=== PATIENT | male | born 1995 | race Caucasian/White ===

== ENCOUNTER 2019-10-03 12:05 | Emergency (ER) | payer OTHER ==
[2019-10-03] MEDS ORDERED: NORMAL SALINE 1000 ML 1,000 ML IV ONE (12:19)
[2019-10-03 12:29] LABS: ABSOLUTE LYMPHOCYTES (AUTO) 0.9 10^3/uL (0.5-4.7); ABSOLUTE MONOCYTES (AUTO) 0.6 10^3/uL (0.1-1.4); ABSOLUTE NEUT (AUTO) 4.5 10^3/uL (1.7-8.2); BASOPHILS % (AUTO) 0.5 % (0-2); EOSINOPHILS % (AUTO) 0.4 % (0-6); HEMATOCRIT 46.5 % (37.9-51.0); HEMOGLOBIN 16.2 g/dL (13.5-17.0); MEAN CORPUSCULAR HEMOGLOBIN 29.5 pg (27.0-33.4); MEAN CORPUSCULAR HGB CONC 34.8 g/dL (32.0-36.0); MEAN CORPUSCULAR VOLUME 85 fl (80-97); MONOCYTES % (AUTO) 9.4 % (3-13); PLATELET COUNT 213 10^3/uL (150-450); RED BLOOD COUNT 5.49 10^6/uL (4.35-5.55); RED CELL DISTRIBUTION WIDTH 13.7 % (11.5-14.0); SEGMENTED NEUTROPHILS % (AUTO) 74.7 % (42-78); TOTAL CELLS COUNTED % (AUTO) 100 %
--- NOTE | 2019-10-03 12:30 | ER Document Report ---
ED General - General Chief Complaint: Suicidal Ideation Stated Complaint: SUICIDAL IDEATION Time Seen by Provider: 10/03/19 12:14 - HPI Notes: 24-year-old male transported here via EMS following attempted suicide. The patient apparently informed a friend that he was having thoughts about harming himself and they sent sheriff bush to his residence where he was found in a closed garage with in general automobile running apparently attempting suicide by inhalation of carbon monoxide. He was awake but lethargic when EMS arrived. Patient also told him that he had taken approximately 15 tablets of methylphenidate 27 mg. extended release no vomiting. Patient also ingested about 6 beers this morning. Patient is minimally cooperative and conversant here. Active duty . - Related Data Allergies/Adverse Reactions: No Known Allergies Allergy (Unverified 10/03/19 14:04) Past Medical History - General Information source: Patient, Emergency Med Personnel - Social History Smoking Status: Unknown if Ever Smoked Family History: Reviewed & Not Pertinent Psychiatric Medical History: Reports: Hx Depression Review of Systems - Review of Systems -: Yes ROS unobtainable due to patient's medical condition Physical Exam - Vital signs Vitals: Resp Pulse Ox 14 100 10/03/19 12:11 10/03/19 12:11 - Notes Notes: GENERAL: Male patient of approximately stated age who is sleepy but arousable and will answer simple yes/no questions. SKIN: Mildly flushed. Good turgor no rashes. HEAD: Normocephalic atraumatic. EYES: PERRLA. EOMI. Conjunctivae and sclerae clear. EARS: CANALS AND TMS CLEAR. NOSE: CLEAR. MOUTH: Moist mucosa. Good dentition. No stridor or edema. No drooling. NECK: Supple. No masses or thyromegaly. No adenopathy. Carotids 2+ without bruits. No JVD. BACK: Symmetrical without tenderness. CHEST: Respirations unlabored. Breath sounds clear and symmetrical. HEART: Tachycardic regular rhythm. No murmur gallop or rub. ABDOMEN: Soft nontender without masses, organomegaly or rebound. Bowel sounds normally active. No bruits. GENITALIA: Deferred. EXTREMITIES: No edema. No calf tenderness. Cap refill less than 1.5 seconds. Dorsalis pedis and posterior tibial pulses 3+ and symmetrical. NEUROLOGICAL: GCS 13. Sleepy but arousable. Speech mildly slurred cranial nerves II through XII intact. Sensorimotor and cerebellar normal. Normal tone. PSYCHIATRIC: Flat affect. Course - Re-evaluation Re-evalutation: 10/03/19 12:30 Case discussed with [place] poison control ( [place]). Because of the ingestion of extended release methylphenidate they recommend a minimum of [address] patient on a 100% nonrebreather O2 mask. Carboxyhemoglobin ABG CK chemistry CBC salicylate level and acetaminophen level as well as EKG requested. - Vital Signs Vital signs: Temp Pulse Resp BP Pulse Ox 98.4 F 17 130/101 H 100 10/03/19 19:44 10/03/19 19:02 10/03/19 19:02 10/03/19 19:02 - Laboratory Result Diagrams: 10/03/19 12:10 10/03/19 12:10 Laboratory results interpreted by me: 10/03/19 10/03/19 10/03/19 12:10 12:10 12:10 ABG pO2 344.8 H ABG O2 Saturation 99.8 H Carboxyhemoglobin 1.8 H Glucose 119 H Calcium 10.3 H Albumin 5.2 H Salicylates < 1.0 L Acetaminophen < 10 L Discharge - Discharge Clinical Impression: Suicide attempt, Carbon monoxide toxicity, Intentional overdose methylphenidate Major depression Qualifiers: Major depression recurrence: unspecified whether recurrent Active/Remission status: currently active Major depression episode severity: severe Psychotic features: without psychotic features Qualified Code(s): F32.2 - Major depressive disorder, single episode, severe without psychotic features Disposition: PSYCH HOSP/UNIT
[2019-10-03 12:40] LABS: ARTERIAL BLOOD BASE EXCESS -0.7 mmol/L; ARTERIAL BLOOD FIO2 15L; ARTERIAL BLOOD H2CO3 1.16 mmol/L (1.05-1.35); ARTERIAL BLOOD HCO3 23.8 mmol/L (20-24); ARTERIAL BLOOD O2 SATURATION 99.8 % (94-98); ARTERIAL BLOOD PCO2 38.7 mmHg (35-45); ARTERIAL BLOOD PH 7.41 (7.35-7.45); ARTERIAL BLOOD PO2 344.8 mmHg (80-100); ARTERIAL BLOOD TOTAL CO2 24.9 mmol/L (23-27)
[2019-10-03 12:46] LABS: ALBUMIN 5.2 g/dL (3.5-5.0); ALCOHOL 44 mg/dL (NONE DETECTED); ALKALINE PHOSPHATASE 58 U/L (38-126); ANION GAP 14 (5-19); ASPARTATE AMINO TRANSFERASE 23 U/L (17-59); BILIRUBIN,DIRECT 0.3 mg/dL (0.0-0.4); BILIRUBIN,TOTAL 0.4 mg/dL (0.2-1.3); BLOOD UREA NITROGEN 18 mg/dL (7-20); CALCIUM 10.3 mg/dL (8.4-10.2); CARBON DIOXIDE 25 mmol/L (22-30); CHLORIDE 104 mmol/L (98-107); GLUCOSE 119 mg/dL (75-110); POTASSIUM 4.5 mmol/L (3.6-5.0); TOTAL PROTEIN 8.2 g/dL (6.3-8.2)
[2019-10-03 12:47] LABS: ACETAMINOPHEN < 10 ug/mL (10-30); SALICYLATE < 1.0 mg/dL (2.0-20.0)
--- NOTE | 2019-10-03 13:49 | PSYCHOLOGICAL NOTE ---
Psych Note - Psych Note Date seen by psych provider: 10/03/19 Time seen by psych provider: :20 Psych Note: Reason for Consult: Suicide attempt Patient is currently not medically cleared. Patient confirms to clinician he attempted suicide by overdosing on his medication and locking himself in his garage with his car on. He reports he was upset about work, but does not go into details. He states his attempt was more impulsive with little planning and immediate action. He disclosed he was at work when he became upset, left and acted on his plan. 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 Patient is recommended for IVC. Once medically cleared, the behavioral health team will coordinate with [facility]'s transfer center for plan of care due to the patient being active duty.
--- NOTE | 2019-10-03 14:27 | EKG REPORT ---
SEVERITY:- ABNORMAL ECG - SINUS TACHYCARDIA PROBABLE LEFT ATRIAL ABNORMALITY CONSIDER RIGHT VENTRICULAR HYPERTROPHY NONSPECIFIC T ABNORMALITIES, INFERIOR LEADS : Confirmed by: Harpreet Bell 03-Oct-2019 14:24:58
[2019-10-03 16:32] LABS: APPEARANCE,URINE CLEAR; BILIRUBIN,URINE NEGATIVE (NEGATIVE); COLOR,URINE COLORLESS; GLUCOSE, URINE NEGATIVE (NEGATIVE); KETONES,URINE NEGATIVE (NEGATIVE); PROTEIN,URINE NEGATIVE (NEGATIVE); URINE SPECIFIC GRAVITY 1.003; UROBILINOGEN,URINE NEGATIVE mg/dL (<2.0)
[2019-10-03 17:00] LABS: URINE AMPHETAMINES SCREEN NEGATIVE; URINE BARBITURATES SCREEN NEGATIVE; URINE BENZODIAZEPINES SCREEN NEGATIVE; URINE COCAINE SCREEN NEGATIVE; URINE MARIJUANA (THC) SCREEN NEGATIVE; URINE METHADONE SCREEN NEGATIVE; URINE PHENCYCLIDINE SCREEN NEGATIVE
[2019-10-03] MEDS: NORMAL SALINE 1000 ML 1,000 ML IV PRN ×2 (20:35→21:10)
--- NOTE | 2019-10-03 23:22 | ER Document Report ---
Doctor's Note Notes: 10/03/19 23:17 Pt turned over to be by Dr. Cervantes awaiting heart rate to be not tachycardic and ? transfer to [facility]. He reportedly drank a six pack and turned his vehicle on and tried to kill himself with CO. Also took extra methylphenidate. Poison center reccomendations were followed and he was observed in the ED. I have discussed with Dr. Arevalo (Psychiatry at [place]) and he has graciously accepted the pt as a transfer to the psychiatric [facility] at [place]. We are awaiting logistics. Discharge - Discharge Clinical Impression: Suicide attempt, Major depression, Carbon monoxide toxicity, Intentional overdose methylphenidate Disposition: HOME, SELF-CARE Instructions: Depression ([facility]) Additional Instructions: Go directly to the [facility] at [facility] as directed. Please return here for any problems or any concerns including but not limited to thoughts of self harm or other concerns.
[2019-10-04] MEDS ORDERED: LORAZEPAM 1 MG TABLET PO ONE (05:31)
[2019-10-04 08:23] VITALS: BP 166/86
[2019-10-04] MEDS ORDERED: METOPROLOL TARTRATE PF/INJ 5 MG/5 ML SDV IV ONE (08:53)
--- NOTE | 2019-10-04 09:06 | ER Document Report ---
Doctor's Note Notes: 10/04/19 09:03 I discussed this case with Dr. Hernández at [facility] via transfer center [facility] because of increased heart rate that began around 0 345 this morning. Initially when the call and for his transfer was made he had a 85 heart rate. Patient has had consistently high for his age group elevated blood pressure and heart rate and therefore he was written for beta-nisha prior to being transferred. This was also made aware to Dr. Hernández at 0 900 this morning by this telephone call.
== END 2019-10-04 12:04 ==
LOC: ER 12:05
DX: J02.9 Acute pharyngitis, unspecified (principal)
CPT/HCPCS: 93005; 99285; 96361; 96374; 36415; 82375; 80307 ×4; 82803; 85025; 80053; 81001; 84484; 93010; J3490; J7030